=== PATIENT | female | born 1955 | race Caucasian/White ===

== ENCOUNTER 2017-06-06 11:58 | Emergency (ER) | payer BC ==
[2017-06-06 12:18] LABS: Urine Bilirubin Negative (NEGATIVE); Urine Ketone Negative (NEGATIVE); Urine Nitrite Negative (NEGATIVE); Urine Protein 30 mg/dL (NEGATIVE); Urine Specific Gravity 1.025 SP.GR. (1.005-1.010); Urine Urobilinogen Normal (NORMAL)
[2017-06-06 12:35] LABS: Urine Appearance Clear; Urine Bacteria TRACE; Urine Blood 5 /ul (NEGATIVE); Urine Color Yellow; Urine RBC 0-5 /hpf (0-5); Urine WBC None Seen /hpf (0-5)
[2017-06-06 12:40] LABS: Hematocrit 36.3 % (37.0-47.0); Hemoglobin 11.9 gm/dL (12.5-16.0); Mean Cell Volume 87.3 fl (78-100); Mean Corpuscular Hemoglobin 28.6 pg (27-31); Mean Corpuscular Hgb Conc 32.8 g/dl (32-36); Mean Platelet Volume 9.6 fl (6.0-9.5); Neutrophil # 5.6 K/mm3 (1.3-6.0); Platelet Count 182 K/mm3 (150-450); Red Blood Count 4.16 M/mm3 (4.2-5.4); Red Cell Distribution Width 12.8 % (11.5-14.0); White Blood Count 7.7 K/mm3 (4.0-10.5)
--- NOTE | 2017-06-06 12:45 | ERNOTE ---
Medical Problem HPI - Narrative Date of Service: 06/06/17 - General Chief Complaint: General Assessment Time Seen by Provider: 06/06/17 12:13 Source: patient, RN notes reviewed Exam Limitations: no limitations - Immun/Allergies/Home Medications Immunizations: IMMUNIZATION HX Immunizations Up to Date Yes History of Influenza Vaccine No Hx Pneumococcal Vaccination No Allergies/Adverse Reactions: Allergies No Known Allergies Allergy (Unverified 06/06/17 12:08) Home Medications: HOME MEDICATIONS Aspirin [Aspir-Low] 81 mg PO DAILY 06/06/17 [Last Taken Unknown] Atorvastatin Calcium 40 mg PO DAILY 06/06/17 [Last Taken Unknown] Losartan Potassium [Cozaar] 50 mg PO DAILY 06/06/17 [Last Taken Unknown] Ondansetron [Zofran Odt] 4 mg PO PRN PRN 06/06/17 [Last Taken Unknown] Sertraline HCl 25 mg PO DAILY 06/06/17 [Last Taken Unknown] levETIRAcetam [Keppra] 1,000 mg PO BID 06/06/17 [Last Taken Unknown] - History of Present History Narrative: 61 y/o female brought to the ED by her son-in-law for generally not feeling well. This began early this morning with a mild headache. She took Tylenol and ibuprofen with some improvement, but then became nauseous and had 2 episodes of vomiting despite taking Zofran. She also reports right flank pain. She underwent a carotid endarterectomy on 05/05/17 and has otherwise been doing well since then. Date (Duration): 06/06/17 Review of Systems - Review of Systems Constitutional: Present: fatigue, malaise. Absent: fever, chills EYE: Present: no symptoms reported ENT: Present: no symptoms reported Respiratory: Absent: shortness of breath, cough Cardiology: Absent: chest pain, syncope, edema Gastrointestinal/Abdominal: Present: nausea, vomiting. Absent: diarrhea, abdominal pain Genitourinary: Absent: frequency, dysuria, hematuria Musculoskeletal: Present: back pain. Absent: neck pain, joint pain Skin: Absent: rash, lesions Neurological: Absent: headache, dizziness/light-headedness Endocrine: Present: no symptoms reported Hematologic/Lymphatic: Absent: easy bruising, easy bleeding Psych: Present: no symptoms reported - Patient's Past Medical History Patient History - Medical: Depression Patient History - Cardiac/Respiratory: Hypertension, Hyperlipidemia Patient History - Cancer: No Hx of Cancer Patient History - Surgical Procedures: Tubal Ligation, T & A, Other - Carotid endarterectomy Patient History - Other: None LMP (females 10-50): Menopausal - Social History Living Situations: alone Psych History: No pertinent hx Smoking Status: Former smoker Alcohol Use: none Drug Use: none - Immunizations Immunizations Up to Date: Yes Hx Pneumococcal Vaccination: No History of Influenza Vaccine: No Physical Exam - Physical Exam General Appearance: Present: wd/wn, alert, mild distress Neck: Present: normal inspection, nontender, supple Respiratory: Present: no respiratory distress, normal breath sounds, no accessory muscle use, lungs clear Cardiovascular/Chest: Present: regular rate, rhythm, no murmur, normal peripheral pulses Back Exam: Present: no vertebral tenderness, CVA tenderness (R). Absent: CVA tenderness (L) Extremity Exam: Present: normal inspection, normal range of motion, no edema Neurological Exam: Present: alert, oriented, normal mood/affect, no motor/ sensory deficits Skin Exam: Present: normal color, warm/dry ED Progress - Results and Orders Patient's Lab Results:: I have reviewed the patient's lab results. - Vital Signs Patient's Vital Signs:: I have reviewed the patient's vital signs. Vital Signs: Vital Signs 06/06/17 12:02 Temperature 36.8 C Pulse Rate 95 Respiratory 16 Rate Blood Pressure 159/103 O2 Sat by Pulse 96 Oximetry - CT/Ultrasound CT/Ultrasound Narrative: Stone protocol CT: IMPRESSION: 1. 1.5 MM NONOBSTRUCTING CALCULUS IN THE MIDPOLE OF THE LEFT KIDNEY. 2. NO EVIDENCE FOR HYDRONEPHROSIS OR DEFINABLE CALCULUS ALONG THE PATH OF URETERS. 3. 3.1 CM INFRARENAL ABDOMINAL AORTIC ANEURYSM. 4. DIFFUSE DIVERTICULOSIS, WHICH IS MOST PREVALENT IN THE SIGMOID COLON WITHOUT DEFINABLE DIVERTICULITIS. 5. SMALL FAT-CONTAINING UMBILICAL HERNIA. 6. BONY SCLEROSIS IN REGION OF THE RIGHT SACROILIAC JOINT, WHICH MAY REFLECT AN ELEMENT OF SACROILIITIS. Electronically signed by Avila Canas M.D.. Avila Canas MD - Progress/Reassessment Chief Complaint: General Assessment Progress:: Improved Plan - Plan Plan: Some improvement in pain with Toradol and Phenergan. Continues to report nausea but no vomiting while here. Etiology of symptoms unclear at this point. Agreeable to returning tomorrow if she has not improved, or before if she worsens. Has Zofran at home for nausea. Departure - Departure Clinical Impression: Acute flank pain Vomiting Qualifiers: Vomiting type: unspecified Vomiting Intractability: non-intractable Nausea presence: with nausea Qualified Code(s): R11.2 - Nausea with vomiting, unspecified Disposition: Home Follow Up Needed Condition: Stable Instructions: Nausea, Adult, Flank Pain Additional Instructions: Take Zofran as directed for nausea Tylenol and/or ibuprofen for pain Rest Adequate fluid intake Return tomorrow if no improvement or before if symptoms worsen Referrals: Annalisa Beard FNP [Primary Care Provider] -
[2017-06-06 13:00] LABS: Albumin * 3.9 gm/dl (3.4-5.0); Anion Gap 15.6 mmol/L (6.8-13.8); BUN/Creatinine Ratio 16.8 (9.0-21.6); Bilirubin, Total 0.7 mg/dL (0.0-1.1); Ca. Corrected For Albumin 8.6 mg/dL (8.4-10.2); Calcium * 8.8 mg/dL (7.9-10.9); Carbon Dioxide 22.7 mmol/L (24-32.6); Potassium 4.3 mmol/L (3.4-4.6); Total Protein 7.5 gm/dL (6.2-8.2)
[2017-06-06] MEDS ORDERED: PROMETHAZINE HCL 25 MG/ML AMPUL IM ONE (13:24)
[2017-06-06] MEDS ORDERED: KETOROLAC TROMETHAMINE 60 MG/2 ML VIAL IM ONE ×2 (13:24→13:30)
[2017-06-06] MEDS ORDERED: PROMETHAZINE HCL 25 MG/ML AMPUL ONE (13:30)
[2017-06-06 14:22] VITALS: BP 149/55
== END 2017-06-06 14:37 | disposition home or self-care (01) ==
LOC: ER 11:58
DX: R10.9 Unspecified abdominal pain (principal); F32.89 Other specified depressive episodes; I10 Essential (primary) hypertension; E78.5 Hyperlipidemia, unspecified